=== PATIENT | female | born 1980 | race Two or more races ===

== ENCOUNTER 2017-07-12 14:31 | Emergency (ER) | payer BC, OTHER ==
[~2017-07-12] VITALS: Ht 160 cm; Wt 93.0 kg
[2017-07-12] MEDS ORDERED: DEXAMETHASONE 4 MG TABLET ONE (15:46)
[2017-07-12] MEDS ORDERED: DEXAMETHASONE 4 MG TABLET PO ONE (16:00)
[2017-07-12 16:22] VITALS: BP 100/49
== END 2017-07-12 16:25 | disposition home or self-care (01) ==
LOC: ED 15:39
DX: J02.8 Acute pharyngitis due to other specified organisms (principal); H92.09 Otalgia, unspecified ear
CPT/HCPCS: 93005; 99283

== ENCOUNTER 2019-04-17 14:40 | Emergency (ER) | payer SELFPAY ==
[~2019-04-17] VITALS: Ht 157.5 cm; Wt 94.6 kg
[2019-04-17 15:03] VITALS: BP 173/90
[2019-04-17] MEDS ORDERED: HYDROcodone/APAP 5/325 TABLET PO ONE (15:30)
[2019-04-17] MEDS ORDERED: HYDROcodone/APAP 5/325 TABLET ONE (15:31)
== END 2019-04-17 16:53 | disposition home or self-care (01) ==
LOC: ED 16:15
DX: N63.0 Unspecified lump in unspecified breast (principal); N61.1 Abscess of the breast and nipple
CPT/HCPCS: 76642; 99284

== ENCOUNTER 2019-05-03 08:02 | Outpatient (CLI) | payer OTHER | END 2019-05-03 23:59 | disposition home or self-care (01) | LOC: CFH 08:02 | PROVIDERS: ATTEND Nurse Practitioner Family | DX: N64.4 Mastodynia (principal) | CPT/HCPCS: 76641; 77066; G0279 ==

== ENCOUNTER 2021-08-12 14:29 | Emergency (ER) | payer OTHER ==
[~2021-08-12] VITALS: Ht 157.5 cm; Wt 94.2 kg
[2021-08-12 15:13] LABS: BASOPHILS % (AUTO) 1 % (0-1); EOSINOPHILS % (AUTO) 0 % (1-7); LYMPHOCYTES % (AUTO) 26 % (22-44); MEAN CORPUSCULAR HEMOGLOBIN 32.5 pg (27.0-34.8); MEAN CORPUSCULAR HGB CONC 34.9 g/dL (32.4-35.8); MEAN PLATELET VOLUME 9.1 fL (7.4-10.4); MONOCYTES % (AUTO) 8 % (2-9); NEUTROPHILS % (AUTO) 66 % (42-75); PLATELET COUNT 192 x10^3/uL (130-400); RED BLOOD COUNT 4.91 x10^6/uL (3.82-5.3)
[2021-08-12 15:24] LABS: CHLORIDE 104 mmol/L (98-107)
[2021-08-12 15:33] LABS: ALBUMIN 3.8 g/dL (3.4-5.0); ALKALINE PHOSPHATASE 100 U/L (45-117); ANION GAP 8 mmol/L (5-15); BILIRUBIN,TOTAL 0.3 mg/dL (0.2-1.0); CALCIUM 9.1 mg/dL (8.5-10.1); CREATININE 0.86 mg/dL (0.55-1.02); TOTAL PROTEIN 8.6 g/dL (6.4-8.2)
[2021-08-12 15:37] LABS: MICROSCOPIC INDICATED
[2021-08-12 15:39] LABS: ALANINE AMINOTRANSFERASE 56 U/L (12-78)
--- NOTE | 2021-08-12 17:32 | NUR ---
[facility]SS. AMBULATORY BACK OUT TO LOBBY
--- NOTE | 2021-08-12 19:19 | NUR ---
pt to room from lobby
[2021-08-12] MEDS ORDERED: SODIUM CHLORIDE 0.9% 1,000ML IVBOLUS ONE (20:30)
[2021-08-12] MEDS ORDERED: ONDANSETRON 2MG/ML, 2ML IV ONE (20:30)
[2021-08-12] MEDS ORDERED: SODIUM CHLORIDE FLUSH 10ML SYR IVF ONE (20:30)
[2021-08-12] MEDS ORDERED: IBUPROFEN 600 MG TABLET PO ONE (20:30)
[2021-08-12] MEDS ORDERED: MORPHINE SULFATE 4 MG/ML, 1ML IVPush ONE (20:30)
[2021-08-12] MEDS ORDERED: methylPREDNISolone SOD SUCC 125 MG/2 ML IVPush ONE (20:30)
[2021-08-12] MEDS ORDERED: MORPHINE SULFATE 4 MG/ML, 1ML ONE (21:05)
[2021-08-12] MEDS ORDERED: methylPREDNISolone SOD SUCC 125 MG/2 ML ONE (21:05)
[2021-08-12] MEDS ORDERED: ONDANSETRON 2MG/ML, 2ML ONE (21:05)
--- NOTE | 2021-08-12 21:14 | NUR ---
MEDICATED PER MD ORDER
[2021-08-12] MEDS ORDERED: IBUPROFEN 600 MG TABLET ONE (21:32)
[2021-08-12] MEDS ORDERED: MAALOX/HYOSCYAMINE/LIDOCAINE 45 ML BTL ONE (21:50)
[2021-08-12] MEDS ORDERED: MAALOX/HYOSCYAMINE/LIDOCAINE 45 ML BTL PO ONE (22:00)
[2021-08-12 23:30] VITALS: BP 110/80
--- NOTE | 2021-08-12 23:31 | NUR ---
PT STATES PAIN RELIEVED, READY TO GO HOME
== END 2021-08-12 23:57 | disposition home or self-care (01) ==
LOC: ED 21:26
DX: U07.1 COVID-19 (principal); J06.9 Acute upper respiratory infection, unspecified; S39.012A Strain of muscle, fascia and tendon of lower back, initial encounter; S33.5XXA Sprain of ligaments of lumbar spine, initial encounter; M54.16 Radiculopathy, lumbar region; Z87.891 Personal history of nicotine dependence; X58.XXXA Exposure to other specified factors, initial encounter; Y93.89 Activity, other specified; Y92.89 Other specified places as the place of occurrence of the external cause; Y99.8 Other external cause status
CPT/HCPCS: 36415; 71045; 80053; 81001; 83690; 84703; 85025; 96374; 96375; 99284; J2270; J2405; J2930; J7030; U0003; U0005

== ENCOUNTER 2021-08-18 23:50 | Emergency (ER) | payer OTHER ==
[~2021-08-18] VITALS: Ht 157.5 cm; Wt 92.1 kg
[2021-08-19 01:29] VITALS: BP 124/69
== END 2021-08-19 01:31 | disposition home or self-care (01) ==
LOC: ED 23:59
DX: U07.1 COVID-19 (principal); J12.82 Pneumonia due to coronavirus disease 2019; R06.02 Shortness of breath; Z87.891 Personal history of nicotine dependence